=== PATIENT | male | born 1990 | race Caucasian/White ===

== ENCOUNTER 2020-11-17 04:26 | Emergency (ER) | payer MEDICAID, OTHER ==
[~2020-11-17] VITALS: Ht 180.3 cm; Wt 63.5 kg
[2020-11-17] MEDS ORDERED: TETANUS-DIPTH-ACEL PERTUSSIS 0.5ML SYR Tdap IM ONE (05:00)
[2020-11-17] MEDS ORDERED: IOHEXOL 350 MG/ML 100ML IJ ONE (05:52)
[2020-11-17] MEDS ORDERED: ACETAMINOPHEN 500 MG TAB PO ONE (06:45)
[2020-11-17] MEDS ORDERED: ONDANSETRON HCL 4 MG/2 ML VIAL IV ONE (06:45)
[2020-11-17] MEDS ORDERED: fentaNYL CITRATE 100 MCG/2 ML VL IV ONE (06:45)
[2020-11-17 07:07] LABS: Basophils # (auto) 0 10 ^3/uL (0-0.2); Basophils % (auto) 0.5 % (0.0-2.0); Eosinophils # (auto) 0.1 10 ^3/uL (0-0.8); Eosinophils % (auto) 1.3 % (0.0-7.0); Monocytes # (auto) 1.1 10 ^3/uL (0-1.3); Neutrophils % (auto) 53.9 % (37.0-80.0)
[2020-11-17 07:09] LABS: Hemoglobin 14.5 g/dL (13.5-17.5); Lymphocytes % (auto) 32.8 % (10.0-50.0); Mean Corpuscular Hemoglobin 21.5 pg (28.0-32.0); Mean Corpuscular Hgb Conc. 32.9 g/dL (32.0-36.0); Mean Corpuscular Volume 65.4 fL (80.0-100.0); Monocytes % (auto) 11.5 % (0.0-12.0); Nucleated Red Blood Cells % 1.7 %; Platelet Count (auto) 199 10^3/uL (140-450); Red Blood Cells 6.73 10^6/uL (4.5-5.90); White Blood Cell 9.3 10^3/uL (4.4-10.8)
[2020-11-17 07:21] LABS: INR 0.96 (0.9-1.15)
[2020-11-17 07:25] LABS: Albumin 4.3 g/dL (3.4-5.0); Calcium 8.9 mg/dL (8.5-10.1)
[2020-11-17 07:30] LABS: BUN/Creatinine Ratio 10.2; Bilirubin, Total 0.6 mg/dL (0.2-1.0); Total Protein 7.6 g/dL (6.4-8.2)
[2020-11-17 08:19] VITALS: BP 130/46
== END 2020-11-17 09:35 | disposition home or self-care (01) ==
LOC: ER 04:26
DX: S71.132A Puncture wound without foreign body, left thigh, initial encounter (principal); F17.210 Nicotine dependence, cigarettes, uncomplicated; W34.09XA Accidental discharge from other specified firearms, initial encounter; Y93.89 Activity, other specified; Y92.89 Other specified places as the place of occurrence of the external cause; Y99.8 Other external cause status
CPT/HCPCS: 36415; 73552; 73590; 73706; 80053; 85025; 85610; 90471; 90715; 96374; 96375; 99285; J2405; J3010; Q9967